=== PATIENT | male | born 1985 | race Caucasian/White ===

== ENCOUNTER 2024-02-18 15:00 | Emergency (ER) | payer OTHER ==
[~2024-02-18] VITALS: Ht 195.6 cm; Wt 129.5 kg
[2024-02-18 15:34] VITALS: BP 132/83; TEMP 98
[2024-02-18 17:43] VITALS: PULSE 92
== END 2024-02-18 17:44 | disposition home or self-care (01) ==
LOC: COL.ER 15:00
DX: S90.414A Abrasion, right lesser toe(s), initial encounter (principal); X58.XXXA Exposure to other specified factors, initial encounter